=== PATIENT | female | born 1945 | race Caucasian/White ===

== ENCOUNTER → 2017-06-23 | Outpatient (CLI) | payer MEDICARE ==
--- NOTE | 2017-06-23 13:53 | RAD ---
DATE: 06/23/2017 EXAM: DIGITAL SCREEN BILAT W/CAD HISTORY: Screening mammogram COMPARISON: Multiple prior screening mammograms including 06/20/2016, 05/29/2015 and 06/05/2014 This study was interpreted with the benefit of Computerized Aided Detection (CAD). The breast parenchyma shows scattered fibroglandular densities. Breast parenchyma level B. FINDINGS: There is asymmetry in the left breast, posterior depth only seen on the MLO view. No suspicious mass, calcification or architectural distortion in the right breast IMPRESSION: Asymmetry in the left breast, posterior depth only seen on MLO view. Diagnostic left breast mammogram to include spot compression MLO and full field ML views with consideration for same-day ultrasound. BI-RADS CATEGORY: 0 INCOMPLETE: NEEDS ADDITIONAL IMAGING EVALUATION AND/OR PRIOR MAMMOGRAMS FOR COMPARISON. RECOMMENDED FOLLOW-UP: ADD ADDITIONAL IMAGING PQRS compliance statement: Patient information was entered into a reminder system with a target due date for the next mammogram. Mammography is a sensitive method for finding small breast cancers, but it does not detect them all and is not a substitute for careful clinical examination. A negative mammogram does not negate a clinically suspicious finding and should not result in delay in biopsying a clinically suspicious abnormality. "Our facility is accredited by the [employer] Mammography [employer]."
== END | disposition home or self-care (01) ==
LOC: MAMMO 08:25
PROVIDERS: ATTEND Preventive Medicine Public Health & General Preventive Medicine
DX: N64.89 Other specified disorders of breast (principal)
CPT/HCPCS: G0202; 77067

== ENCOUNTER → 2017-06-26 | Outpatient (CLI) | payer MEDICARE ==
--- NOTE | 2017-06-26 14:35 | RAD ---
DATE: 06/26/2017 EXAM: DIGITAL DIAGNOSTIC LT diagnostic left breast mammogram HISTORY: One view asymmetry in the left breast COMPARISON: Screening mammogram 06/23/2017, 06/20/2016 This study was interpreted with the benefit of Computerized Aided Detection (CAD). The breast parenchyma shows scattered fibroglandular densities. Breast parenchyma level B. FINDINGS: Spot compression MLO and full field ML views of the left breast were obtained. Previously noted asymmetry is not identified on the spot compression views. Impression: Nonvisualization of the asymmetry, likely summation artifact. Recommend routine screening mammogram in 12 months BI-RADS CATEGORY: 1 NEGATIVE RECOMMENDED FOLLOW-UP: 12M 12 MONTH FOLLOW-UP PQRS compliance statement: Patient information was entered into a reminder system with a target due date June 2018 for the next mammogram. Mammography is a sensitive method for finding small breast cancers, but it does not detect them all and is not a substitute for careful clinical examination. A negative mammogram does not negate a clinically suspicious finding and should not result in delay in biopsying a clinically suspicious abnormality. "Our facility is accredited by the [employer] Mammography [employer]."
== END | disposition home or self-care (01) ==
LOC: MAMMO 12:59
PROVIDERS: ATTEND Preventive Medicine Public Health & General Preventive Medicine
DX: R92.8 Other abnormal and inconclusive findings on diagnostic imaging of breast (principal)
CPT/HCPCS: G0206; 77065

== ENCOUNTER → 2018-07-06 | Outpatient (CLI) | payer MEDICARE ==
--- NOTE | 2018-07-06 10:41 | RAD ---
DATE: 07/06/2018 EXAM: MAMMO IZABEL SCREENING BILATERAL HISTORY: Routine screening COMPARISON: 06/23/2017, 06/26/2017 This study was interpreted with the benefit of Computerized Aided Detection (CAD). Breast Density: SCATTERED The breast parenchyma shows scattered fibroglandular densities. Breast parenchyma level B. FINDINGS: 2-D and 3-D tomosynthesis imaging was performed in CC and MLO projections. A small lobulated opacity in the medial aspect of the right breast is unchanged since previous studies. No new or enlarging breast densities are seen. Scattered benign type calcifications are present. No suspicious microcalcifications have developed. IMPRESSION: Stable mammograms without evidence of malignancy. BI-RADS CATEGORY: 2 BENIGN FINDING(S) RECOMMENDED FOLLOW-UP: 12M 12 MONTH FOLLOW-UP PQRS compliance statement: Patient information was entered into a reminder system with a target due date for the next mammogram. Mammography is a sensitive method for finding small breast cancers, but it does not detect them all and is not a substitute for careful clinical examination. A negative mammogram does not negate a clinically suspicious finding and should not result in delay in biopsying a clinically suspicious abnormality. "Our facility is accredited by the [employer] Mammography [employer]."
== END | disposition home or self-care (01) ==
LOC: MAMMO 07:39
PROVIDERS: ATTEND Preventive Medicine Public Health & General Preventive Medicine
DX: Z12.31 Encounter for screening mammogram for malignant neoplasm of breast (principal)
CPT/HCPCS: 77063; 77067

== ENCOUNTER → 2019-09-20 | Outpatient (CLI) | payer MEDICARE ==
--- NOTE | 2019-09-20 15:22 | RAD ---
DATE: September 20, 2019 EXAM: MAMMO IZABEL SCREENING BILATERAL HISTORY: Screening study. COMPARISON: 2016 and 2018 This study was interpreted with the benefit of Computerized Aided Detection (CAD). 2-D digital mammographic views of both breasts were performed in the CC and MLO projections. 3-D digital tomosynthesis images of both breasts were performed in the CC and MLO projections and reviewed on a computer workstation. FINDINGS: Breast Density: SCATTERED The breast parenchyma shows scattered fibroglandular densities. Breast parenchyma level B.. There are no dominant suspicious masses, suspicious microcalcifications or evidence of architectural distortion. Nodule of the central aspect of the right breast is stable. IMPRESSION: No mammographic indicators for malignancy. BI-RADS CATEGORY: 2 BENIGN FINDING RECOMMENDED FOLLOW-UP: 12M 12 MONTH FOLLOW-UP PQRS compliance statement: Patient information was entered into a reminder system with a target due date September 21, 2020 for the next mammogram. Mammography is a sensitive method for finding small breast cancers, but it does not detect them all and is not a substitute for careful clinical examination. A negative mammogram does not negate a clinically suspicious finding and should not result in delay in biopsying a clinically suspicious abnormality. "Our facility is accredited by the [employer] Mammography [employer]." The patient's breast density may affect the ability of mammography to detect breast cancer. There are 4 categories of breast density, A, B, C and D. Breast density A means that most of the breast tissue is replaced with adipose tissue and therefore is not dense. Breast density B means that the breast tissue is mildly dense and scattered. Breast density C means that the breast tissue is heterogeneously dense. Breast density D means that the breast tissue is very dense. Breast densities especially C and D may decrease the sensitivity of mammography to detect breast cancer. Therefore, the patient may benefit from 3-D breast mammography (3D breast tomography) as a part of their screening mammogram. Insurance may or may not pay for this additional imaging. The patient's breast density based on today's mammogram is category B.
== END | disposition home or self-care (01) ==
LOC: MAMMO 07:57
PROVIDERS: ATTEND Preventive Medicine Public Health & General Preventive Medicine
DX: Z12.31 Encounter for screening mammogram for malignant neoplasm of breast (principal); N63.10 Unspecified lump in the right breast, unspecified quadrant
CPT/HCPCS: 77063; 77067

== ENCOUNTER → 2020-09-27 | Outpatient (CLI) | payer MEDICARE ==
--- NOTE | 2020-10-01 10:01 | RAD ---
DATE: 09/27/2020 10:59 AM EXAM: MAMMO IZABEL SCREENING BILATERAL HISTORY: Screening COMPARISON: 09/20/2019, 07/06/2018 Bilateral CC and MLO views of the breasts were performed. Bilateral breast tomosynthesis was performed in CC and MLO projections. This study was interpreted with the benefit of Computerized Aided Detection (CAD). FINDINGS: Breast Density: SCATTERED The breast parenchyma shows scattered fibroglandular densities. Breast parenchyma level B No suspicious masses, microcalcifications or architectural distortion is present to suggest malignancy in either breast. The visualized axillae are unremarkable. IMPRESSION: No mammographic evidence of malignancy. BI-RADS CATEGORY: 1 NEGATIVE RECOMMENDED FOLLOW-UP: 12M 12 MONTH FOLLOW-UP Annual screening mammography is recommended, unless clinically indicated sooner based on symptoms or change in physical exam. PQRS compliance statement: Patient information was entered into a reminder system with a target due date for the next mammogram. Mammography is a sensitive method for finding small breast cancers, but it does not detect them all and is not a substitute for careful clinical examination. A negative mammogram does not negate a clinically suspicious finding and should not result in delay in biopsying a clinically suspicious abnormality. "Our facility is accredited by the [employer] Mammography Program."
== END ==
LOC: MAMMO 11:01
PROVIDERS: ATTEND Preventive Medicine Public Health & General Preventive Medicine
DX: Z12.31 Encounter for screening mammogram for malignant neoplasm of breast (principal)
CPT/HCPCS: 77063; 77067

== ENCOUNTER → 2021-09-30 | Outpatient (CLI) | payer MEDICARE ==
--- NOTE | 2021-09-30 09:03 | RAD ---
INDICATION : Routine Screening. COMPARISON: Priors including September 2019 TECHNIQUE: Standard mammogram screening views of the bilateral breasts were obtained with 3D tomosynt hesis. CAD was utilized. FINDINGS: The breasts are scattered density. No definite suspicious mass. IMPRESSION: BI-RADS Category 2: Benign findings. Recommend repeat screening examination in one year. The patient was placed into the recall system with a suggested recall date for follow up imaging. Mammography is the most sensitive method for finding small breast cancers, but it does not detect the m all and is not a substitute for careful clinical examination. A negative mammogram does not negate a clinically suspicious finding and should not result in delay in biopsying a clinically suspicious abnormality. Electronically signed by: Mark Tesfaye MD (09/30/2021 9:00 AM) [id number]
== END ==
LOC: MAMMO 08:00
PROVIDERS: ATTEND Preventive Medicine Public Health & General Preventive Medicine
DX: Z12.31 Encounter for screening mammogram for malignant neoplasm of breast (principal)
CPT/HCPCS: 77063; 77067